=== PATIENT | male | born 1955 | race Caucasian/White ===

== ENCOUNTER → 2025-03-03 06:24 | Outpatient (REF) | payer MEDICARE, OTHER, SELFPAY ==
[2025-03-03 08:53] LABS: Hematocrit 41.2 % (39.0-52.0); Hemoglobin 14.4 g/dL (13.0-18.0); Mean Corpuscular Hgb 31.9 pg (27.0-31.0); Mean Corpuscular Volume 91.2 fL (80.0-94.0); Mean Platelet Volume 11.3 fL (7.4-10.4); Platelet Count 200 10^3/uL (130-400); Red Blood Cell Count 4.52 10^6/uL (4.70-6.10); Red Cell Dist. Width 12.1 % (11.5-14.5)
[2025-03-03 09:31] LABS: Blood Urea Nitrogen 25 mg/dl (9-20); Calcium 9.5 mg/dl (8.4-10.2); Carbon Dioxide 25 mmol/L (22-30); Chloride 105 mmol/L (98-107); Glucose 124 mg/dl (70-99); Potassium 4.8 mmol/L (3.5-5.1); Sodium 141 mmol/L (135-145); eGFR > 60.00
== END ==
LOC: SDSPAT 06:24
PROVIDERS: ATTENDING PHYSICIAN Specialist; FAMILY PHYSICIAN Family Medicine
DX: Z01.818 Encounter for other preprocedural examination (principal)
CPT/HCPCS: 36415; 80048; 85027; 93005

== ENCOUNTER 2025-03-06 06:16 | Day surgery (SDC) | payer MEDICARE, OTHER, SELFPAY ==
[2025-03-03 13:26] VITALS: BMI 28.1
[2025-03-06] VITALS (9 sets, daily range): BP systolic 90–134; BP diastolic 38–75; BMI 28.1
[2025-03-06] MEDS: NORMOSOL-R/PLASMALYTE-A 1000 IV (09:24)
[2025-03-06] MEDS: Pyridium 200 MG PO (09:24)
== END 2025-03-06 12:35 | disposition home or self-care (01) ==
LOC: SDS 06:16
PROVIDERS: ATTENDING PHYSICIAN Specialist; FAMILY PHYSICIAN Family Medicine
DX: N32.0 Bladder-neck obstruction (principal); N40.1 Benign prostatic hyperplasia with lower urinary tract symptoms
CPT/HCPCS: 52640